=== PATIENT | female | born 1960 | race Caucasian/White ===

== ENCOUNTER → 2016-08-25 | Outpatient (CLI) | payer OTHER ==
--- NOTE | ~2016-08-25 | US6 ---
[facility] A Service of [facility] RADIOLOGY TEXT RESULTS PATIENT: ОЛЕГ BEST LOCATION: [facility] : 62 UNIT #: [id number] AGE: [address]: RAINE CANDELARIA MD SEX: F ORDER DR: [id number] [place] [id number] MR#: [id number] Acc #: [id number] NAME: ОЛЕГ BEST : 1960 SEX: F STUDY DATE/TIME: 08/25/2016 13:26 UNIT: [facility] ROOM: STUDY DESCRIPTION: US Abdominal Limited Attending Physician: Raine Candelaria M.D. Referring Physician: Raine Candelaria M.D. Ordering Physician: Raine Candelaria M.D. Primary Care Physician: Raine Candelaria M.D. MEDICAL IMAGING REPORT This report is preliminary unless electronic signature is present. EXAM Right upper quadrant ultrasound 08/25/2016 HISTORY Abnormally elevated liver enzymes diagnosed 1 week ago. FINDINGS The liver demonstrates an increase in echotexture with attenuation of the ultrasound beam characteristic of fatty infiltration. No cystic or solid mass lesions were seen in the liver. The intrahepatic bile ducts are not dilated. The gallbladder is normal with no evidence of cholelithiasis, wall thickening or pericholecystic fluid. The common duct was obscured by bowel gas. The pancreas and right kidney are normal. IMPRESSION 1. Fatty infiltration of the liver. 2. Normal gallbladder. 3. The common bile duct was not visualized due to excessive bowel gas. Dictated by... Nathaniel Bach M.D. THIS IS AN ELECTRONICALLY VERIFIED REPORT Nathaniel Bach M.D. at 08/26/2016 8:03 AM Benita TD: 08/25/2016 19:13 JOB #: [id number] MEDICAL IMAGING REPORT Page 1 of 1
== END | disposition home or self-care (01) ==
LOC: SGUS 13:16
DX: R94.5 Abnormal results of liver function studies (principal); K76.0 Fatty (change of) liver, not elsewhere classified
CPT/HCPCS: 76705